=== PATIENT | female | born 1930 | race Caucasian/White ===

== ENCOUNTER 2017-03-30 06:28 | Inpatient (IN) ==
--- NOTE | 2017-03-27 14:18 | Anesthesia Evaluation PreOp ---
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: Denies Any Significant HX Other Medical History: Thyroid (hypothyroid), Other (breast cancer) Anesthesia History: No Prior Anesthetic Complications, Past Anesthesia (breast ca, AICD, vish) : No Alcohol Use: rarely Drug use: none Medications and Allergies Levothyroxine [Synthroid] 50 mcg PO AD 04/26/15 [History] Levothyroxine [Synthroid] 75 mcg PO AD 04/26/15 [History] Lovastatin [Mevacor] 10 mg PO HS 04/26/15 [History] Anastrozole [Arimidex] 1 mg PO DAILY #90 tablet 10/15/15 [Rx] Cholecalciferol (D-3) [Vitamin D] 1,000 unit PO DAILY 06/09/16 [History] Lactose-Reduced Food [Ensure Original] 1 bottle PO QWEEK 02/19/17 [History] predniSONE [PredniSONE] 10 mg PO BIDWM #6 tab 02/20/17 [Rx] 3 Allergy/AdvReac Type Severity Reaction Status Date / Time No Known Allergies Allergy Verified 02/19/17 08:16 - Meds/Allergy Pre-op Review Medications Reviewed: Yes Allergies Reviewed: Yes Beta Blockers on Current Med List: No Anesthesia Results - Labs Laboratory Tests 03/26/17 03/26/17 03/26/17 15:42 15:42 15:42 Hgb 14.3 Hct 45.1 H Plt Count 165 PT 11.6 INR 1.1 APTT 32.4 Sodium 144 Potassium 4.1 BUN 20 Creatinine 0.97 - Imaging Additional studies: echo: Normal LV systolic function, LVEF 60%. Normal right ventricular size and function. A device lead was visualized in the right atrium and right ventricle. There is a moderate-large pericardial effusion present, located adjacent to the right ventricle. There is no echocardiographic evidence of tamponade, however, the IVC was not visualized on this study. This pericardial effusion has not significantly changed in size when compared to the prior echocardiogram on 11/28/16. Anesthesia Exam Selected Entries 03/30/17 06:58 Temperature 98.0 F Pulse Rate 89 Respiratory Rate 16 Blood Pressure 146/77 O2 Sat by Pulse Oximetry 91 Weight: 42 NPO (# of Hours): 8 Pain Scale: 0 Pain Scale Used: Numeric (1 - 10) - HEENT Pupil (Motor): EOMI Mallampati: II Teeth: Edentulous Oral Opening: Greater than 3 - CUT PRESS OPERATOR LOC: Oriented CUT PRESS OPERATOR Motor: Normal RUE, Normal LUE, Normal RLE, Normal LLE, Normal Face CUT PRESS OPERATOR Sensory: Normal: RUE, LUE, RLE, LLE, Face - Cardiac Rhythm: Regular Murmur: None - Pulmonary Breath Sounds: bilateral Clear Respiratory Effort: Symmetrical Anesthesia Assess/Plan ASA Score: 3 Modified La Scale for Level of Consciousness: Cooperative, oriented, and tranquil Anesthetic Plan: General Monitoring Plan: Standard Monitors Recovery Plan: PACU (discussed risks of GA, questions answered and agrees to proceed)
[2017-03-30] MEDS ORDERED: *HR* Etomidate 20 MG/10 ML AMPUL IVP ONE (06:50)
[2017-03-30] MEDS ORDERED: *HR* Phenylephrine 10 MG/ML VIAL ONE (06:50)
[2017-03-30] MEDS ORDERED: *HR* Rocuronium Bromide 50 MG/5 ML VIAL ONE (06:50)
[2017-03-30] MEDS ORDERED: *HR* Midazolam HCl 5 MG/5 ML VIAL IVP ONE (06:52)
[2017-03-30] MEDS ORDERED: *HR* FentaNYL (PF) 250 MCG/5 ML VIAL ONE (06:53)
[2017-03-30] MEDS ORDERED: Albuterol 2.5 MG/3 ML NEBULIZER IH ONE (06:57)
[2017-03-30] MEDS ORDERED: ceFAZolin 1,000 MG in D5% in Water (Mini-Bag+) 100 ML IVPB ONE (07:28)
[2017-03-30] MEDS ORDERED: Ringers Solution, Lactated 1,000 ML IVC SCH (07:30)
--- NOTE | 2017-03-30 07:32 | History & Physical Report ---
Date of Encounter: 03/30/17 Time of Encounter: 07:31 24 Hour HP Update - Instructions Instructions: If the History and Physical is less than 30 days old and was completed prior to A.M. admission and or procedure and has NOT been updated on calendar day of procedure please complete this update prior to performing procedure. - Update Patient reports changes in Medical Condition: No Changes in examination, assessment, or condition: No Changes in Medication: No Preop tests/diagnostics Reviewed: Yes Pre-Op MRSA Screen: Negative Surgery Remains Indicated: Yes Consent for Planned Operative Procedure(s) Verified: Yes - Pre-Operative Checklist Preoperative Checklist Indicated: Yes Prophylactic Antibiotic Ordered: Yes Home Medications Include Beta June: No Beta June Taken Today (Day of Surgery): No Beta June Taken Yesterday (Day Prior to Surgery): No Is VTE Prophylaxis Indicated?: Yes
[2017-03-30] MEDS ORDERED: Dexamethasone 4 MG/ML VIAL ONE (08:30)
[2017-03-30] MEDS ORDERED: Ondansetron 4 MG/2 ML VIAL ONE (08:30)
[2017-03-30] MEDS ORDERED: Naloxone 0.4 MG/ML INJ IVP PRN (08:51)
[2017-03-30] MEDS ORDERED: *HR* OxyCODONE/APAP 5/325 TABLET PO PRN ×2 (08:51→08:52)
[2017-03-30] MEDS ORDERED: Ondansetron 4 MG/2 ML VIAL IVP ONE (08:52)
[2017-03-30] MEDS ORDERED: *HR* Meperidine 25 MG/ML SYRINGE IVP PRN (08:52)
[2017-03-30] MEDS ORDERED: Dextrose Gel 15 GM PO PRN ×2 (08:55)
[2017-03-30] MEDS ORDERED: D5% in Water 1,000 ML IVC PRN (08:55)
[2017-03-30] MEDS ORDERED: *HR* Dextrose 50 % in Water (Syg) 50 ML SYRINGE IVP PRN (08:55)
--- NOTE | 2017-03-30 09:01 | Operative Note ---
Date of procedure: 03/30/17 Procedure in Detail: Preoperative diagnosis. Pericardial effusion. Postoperative diagnosis. Same. Procedures. Pericardial window with pericardial biopsy. Surgeon. Dr. Pelon De Jesus. Anesthesia. Dr. Tirso Peacock. The patient is an 86-year-old female who has a history of breast cancer approximately 5 years ago. She has been followed for a pericardial effusion. She has had symptoms of dyspnea on exertion. She was referred to surgery both to remove the fluid and to make a diagnosis. She was brought to the operating room where she was prepped and draped in standard fashion. She underwent a general anesthetic. A standard incision was made over the lower sternum and xiphoid into the midline epigastrium. A retractor was placed underneath the sternum and dissection continued up to the pericardium. The pericardium was opened with a #15 blade and the Metzenbaum scissors. A proximally 100 mL of clear fluid was obtained. This was sent for cultures including aerobic, anaerobic, TB and fungal. It was also sent for cytology. 2 pericardial biopsies were taken using the Metzenbaum scissors and sent together for permanent pathology. The pericardium was free. There were no adhesions. It was smooth. There was no palpable tumor. A single # 32 angle chest tube was placed in the pericardial well. The fascia was closed with a #0 Vicryl. Subcutaneous tissues with a 2-0 Vicryl. Skin was closed with a 3-0 Vicryl subcuticular stitch. The patient tolerated the procedure well and was returned to recovery room in satisfactory and stable condition.
[2017-03-30] MEDS ORDERED: *HR* Morphine 2 MG/ML SYRINGE ONE ×4 (09:07→09:46)
[2017-03-30] MEDS: *HR* Morphine 2 MG/ML SYRINGE IVP PRN ×7 (09:25→10:33)
[2017-03-30 09:28] LABS: Basophils % 0.4 %; Eosinophils # 0.1 K/mcL (0.0-0.6); Eosinophils % 1.6 %; Hematocrit 41.1 % (35.3-44.9); Immature Granulocytes % 0.5 % (0-4); Lymphocytes # 1.6 K/mcL (0.6-4.6); Lymphocytes % 27.9 %; Mean Corpuscular HGB Conc 31.6 g/dL (31.6-35.5); Mean Corpuscular Volume 91.7 fL (83.0-100.0); Mean Platelet Volume 12.4 fL (9.4-12.4); Monocytes # 0.4 K/mcL (0.0-1.3); Monocytes % 7.8 %; Neutrophils # 3.5 K/mcL (1.6-8.9); Platelet Count 134 K/mcL (140-400); Red Blood Count 4.48 M/mcL (3.82-4.97); Red Cell Distribution Width 13.9 % (11.5-14.5); Segmented Neutrophils % 61.8 %
[2017-03-30 09:35] LABS: ABG Base Excess 1.9 mEq/L (-2.0 to 3.0); ABG HCO3 28 mEq/L (21-27); ABG Oxygen Saturation 95 % (95-98); ABG PCO2 50 mmHg (35-45); ABG PH 7.36 pH Units (7.32-7.45); ABG PO2 78 mmHg (85-104); ABG TCO2 29.7 mEq/L (20-26)
[2017-03-30 09:36] LABS: Blood Gas FiO2 30 %
[2017-03-30] MEDS ORDERED: *HR* Morphine 2 MG/ML SYRINGE IVP PRN ×2 (09:49→11:01)
--- NOTE | 2017-03-30 09:57 | Anesthesia Evaluation Post Op ---
Date of Encounter: 03/30/17 Time of Encounter: 10:00 - Vital Signs Vital Signs: Vital Signs/O2 Sat/Glucose, Most Current Temp Pulse Resp BP Pulse Ox 03/30/17 09:04 79 16 173/84 96 03/30/17 08:54 96 16 180/84 95 03/30/17 08:44 97.9 F 96 16 174/93 98 03/30/17 06:58 98.0 F 89 16 146/77 91 - Lungs Lungs: Clear Ascult./Percussion - Airway Airway: Non-obstructed - Cardiovascular Regular Rate - Mental Status Mental Status: Alert & Oriented, Answers Appropriately - Pain Pain Scale: 1 - Nausea Vomiting Nausea Vomiting: Not Present - Hydration Hydration: Ice chips - Discharge PostOp Status: Transfer Patient to floor
[2017-03-30] MEDS: 0.9 % Sodium Chloride 1,000 ML IVC SCH ×2 (10:42→23:54)
--- NOTE | 2017-03-30 10:54 | Cardiology Consult Note ---
Date of Encounter: 03/30/17 Time of Encounter: 10:50 Assessment and Plan (1) Chest tightness or pressure Current Visit: Yes Status: Acute -post-op chest heaviness and tightness after surgery this morning for a pericardial window (with biopsy) for a moderate to large sized pericardial effusion as seen on echocardiograms done 11/28/16 and 02/26/17. Both echos showed LVEF 60%, pericardial effusion as mentioned, and no evidence of cardiac tamponade. -pt's atypical chest pain is most likely musculoskeletal in nature and the result of the manipulation required for her procedure this morning. Discussion w patient/family: The assessment and plan as outlined above was discussed with the patient and/or family members who expressed understanding and agreement. All questions were answered. Thank you for involving us in the care of your patient. Please call with any questions. History of Present Illness Consult date: 03/30/17 Consult reason: post-op chest pain Chief complaint: chest tightness, heaviness History of present illness: Ms. Vaca is a 86 year old female with PMH of breast cancer s/p right mastectomy 5 years ago; symptomatic bradycardia, paroxysmal atrial fibrillation , and heart block s/p pacemaker insertion at [facility] in 2003 who c/o chest tightness and heaviness this morning s/p surgery for pericardial window to treat a moderate to large pericardial effusion first seen on TTE done 11/28/16 with a LVEF of 60% and no tamponade. Repeat echo done on 02/26/17 shows no significant changes from previous echo, moderate to large pericardial effusion, LVEF 60%, and no tamponade. Pt states the heaviness and tightness in her chest began after waking up from anesthesia, it is located along the right sternal boarder and it does not radiate. She has not felt this sensation in the past. Pt denies shortness of breath, N/V, diaphoresis, palpitations. However, pt does admit to chest discomfort on inhalation which improves on exhalation. Past Med Surg Social Fam HX - Past Medical History Medical history: cancer, hyperlipidemia, thyroid disease Psychiatric history: no psych history - Past Surgical History Surgical History: appendectomy, breast surgery, cholecystectomy, pacemaker/AICD - Social History Smoking Status: Never smoker Smokeless Tobacco Status: No Alcohol use: rarely Drug use: none Medications and Allergies Levothyroxine [Synthroid] 50 mcg PO Q48H 04/26/15 [History] Levothyroxine [Synthroid] 75 mcg PO Q48H 04/26/15 [History] Anastrozole [Arimidex] 1 mg PO DAILY #90 tablet 10/15/15 [Rx] Cholecalciferol (D-3) [Vitamin D] 1,000 unit PO DAILY 06/09/16 [History] Lactose-Reduced Food [Ensure Original] 1 bottle PO QWEEK 02/19/17 [History] Acetaminophen [Tylenol] 500 mg PO Q6HR PRN 03/30/17 [History] Aspirin [Ecotrin] 325 mg PO DAILY 03/30/17 [History] Calcium Carbonate/Vitamin D3 [Calcium 600-Vit D3 400 Tablet] 1 each PO BID 03/30 [History] Lovastatin [Lovastatin] 10 mg PO HS 03/30/17 [History] 3 Allergy/AdvReac Type Severity Reaction Status Date / Time No Known Allergies Allergy Verified 03/30/17 07:28 All Systems Review: A 10-system review of systems was performed and is negative for pertinent findings except as documented above in the HPI. - Cardiovascular Cardiovascular: as per HPI, no diaphoresis, no radiating jaw, neck or arm pain, no palpitations - Respiratory Respiratory: no dyspnea - Gastrointestinal Gastrointestinal: no nausea (chest pressure, tightness) Physical Examination Vital Signs, Last 4 Hours Temp Pulse Resp BP Pulse Ox 03/30/17 10:24 97.5 F L 78 22 144/86 95 03/30/17 10:04 97.8 F 74 16 130/93 96 03/30/17 09:54 77 16 153/73 96 03/30/17 09:44 97.8 F 73 16 152/77 96 03/30/17 09:34 73 16 152/72 95 03/30/17 09:24 75 16 130/93 94 03/30/17 09:14 97.8 F 77 16 137/86 96 03/30/17 09:04 79 16 173/84 96 03/30/17 08:54 96 16 180/84 95 03/30/17 08:44 97.9 F 96 16 174/93 98 03/30/17 06:58 98.0 F 89 16 146/77 91 General: Conversant, No Apparent Distress HEENT: Atraumatic, Normocephaly Cardiac: Reg Rate and Rhythm, Normal S1 and S2 Lungs: Normal Breath Sounds, No Wheeze, Rales, Rhonchi Neuro: Alert and responsive Skin: No rashes noted on visualized skin Musculoskeletal: Other (surgical placement of chest tube into pericardial well) Extremities: No Edema, Normal Pulses (dorsalis pedis pulses palpable bilaterally ), Other Results 03/30/17 09:15 03/30/17 10:52 Lab Results 03/30/17 09:15 WBC 5.6 Hgb 13.0 Hct 41.1 Plt Count 134 L Consult Discharge Plan - Plan Referrals: Helder Carpenter MD [Primary Care Provider] - (SENT WEB REQUEST ON 03-30-17 @ [phone]) Pelon De Jesus MD [Partnered Physician] - 04/30/17 1:00 pm
[2017-03-30 11:12] LABS: BUN/Creatinine Ratio 19 (6-26); Blood Urea Nitrogen 15 mg/dL (7-20); Calcium 8.6 mg/dL (8.6-10.8); Carbon Dioxide 25 mEq/L (19-29); Chloride 106 mEq/L (98-109); Glucose 106 mg/dL (70-99); Osmolality,Calculated 295 (280-300); Potassium 3.5 mEq/L (3.5-4.5); Sodium 142 mEq/L (136-145); eGFR For African Americans > 60 (> 60); eGFR For Non-African Americans > 60 (> 60)
[2017-03-30] MEDS: Ketorolac 15 MG/ML VIAL IVP SCH ×3 (11:29→23:55)
[2017-03-30] MEDS: Insulin LISPRO 300 UNITS/3 ML VIAL SQ SCH ×2 (11:30→16:44)
[2017-03-30] MEDS: Albuterol 2.5 MG/3 ML NEBULIZER IH SCH ×4 (11:34→23:49)
[2017-03-30] MEDS ORDERED: Ondansetron 4 MG/2 ML VIAL IVP PRN (13:34)
[2017-03-30] MEDS: ceFAZolin 2,000 MG in D5% in Water 100 ML IVPB SCH ×2 (16:44→23:55)
--- NOTE | 2017-03-30 18:09 | Electrocardiograph Report ---
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
[2017-03-30] MEDS: Ringers Solution, Lactated 1,000 ML IVC SCH (19:43)
[2017-03-30] MEDS ORDERED: Insulin LISPRO 300 UNITS/3 ML VIAL SQ SCH (21:00)
[2017-03-31] MEDS: Albuterol 2.5 MG/3 ML NEBULIZER IH SCH ×5 (04:55→20:31)
[2017-03-31 05:02] LABS: ABG Base Excess 3.3 mEq/L (-2.0 to 3.0); ABG HCO3 29 mEq/L (21-27); ABG Oxygen Saturation 95 % (95-98); ABG PCO2 45 mmHg (35-45); ABG PH 7.41 pH Units (7.32-7.45); ABG PO2 75 mmHg (85-104); ABG TCO2 29.9 mEq/L (20-26)
[2017-03-31 05:11] LABS: Basophils % 0.1 %; Hematocrit 36.7 % (35.3-44.9); Immature Granulocytes % 0.7 % (0-4); Lymphocytes # 1.1 K/mcL (0.6-4.6); Lymphocytes % 11.9 %; Mean Corpuscular HGB Conc 30.5 g/dL (31.6-35.5); Mean Corpuscular Hemoglobin 28.9 pg (28.0-33.3); Mean Corpuscular Volume 94.8 fL (83.0-100.0); Mean Platelet Volume 12.4 fL (9.4-12.4); Monocytes # 1.1 K/mcL (0.0-1.3); Monocytes % 12.2 %; Platelet Count 138 K/mcL (140-400); Red Blood Count 3.87 M/mcL (3.82-4.97); Red Cell Distribution Width 14.6 % (11.5-14.5); Segmented Neutrophils % 75.1 %
[2017-03-31 05:19] LABS: Hemoglobin 11.2 g/dL (11.5-15.4); Neutrophils # 6.8 K/mcL (1.6-8.9)
[2017-03-31 05:20] LABS: BUN/Creatinine Ratio 20 (6-26); Blood Urea Nitrogen 20 mg/dL (7-20); Carbon Dioxide 24 mEq/L (19-29); Chloride 105 mEq/L (98-109); Glucose 107 mg/dL (70-99); Osmolality,Calculated 293 (280-300); Potassium 3.9 mEq/L (3.5-4.5); Sodium 140 mEq/L (136-145); eGFR For African Americans > 60 (> 60); eGFR For Non-African Americans 53 (> 60)
[2017-03-31] MEDS: Ketorolac 15 MG/ML VIAL IVP SCH ×3 (06:47→17:51)
[2017-03-31] MEDS: Insulin LISPRO 300 UNITS/3 ML VIAL SQ SCH ×2 (07:56→11:37)
[2017-03-31] MEDS: 0.9 % Sodium Chloride 1,000 ML IVC SCH (11:35)
[2017-03-31] MEDS: Ringers Solution, Lactated 1,000 ML IVC SCH (11:38)
--- NOTE | 2017-03-31 14:18 | Cardiology Progress Note ---
Date of Encounter: 04/01/17 Time of Encounter: 09:30 Assessment and Plan (1) Chest tightness or pressure Current Visit: Yes Status: Resolved -post-op chest heaviness and tightness after surgery 03/30/17 for a pericardial window (with biopsy) for a moderate to large sized pericardial effusion as seen on echocardiograms done 11/28/16 and 02/26/17. Both echos showed LVEF 60%, pericardial effusion as mentioned, and no evidence of cardiac tamponade. -pt's atypical chest pain is most likely musculoskeletal in nature and the result of the manipulation required for her procedure this morning. -03/31/17 pt's chest rightness has resolved. Troponins 0.18 and 0.17. Limited echo shows: LVEF 60-65%, ventricular pacing, normal sized ventricles & normal systolic function, and no evidence of significant pericardial effusion. No further intervention at this time. Discussion w patient/family: The assessment and plan as outlined above was discussed with the patient and/or family members who expressed understanding and agreement. All questions were answered. Thank you for involving us in the care of your patient. Please call with any questions. Subjective Principal diagnosis: Chest tightness Interval history: -Pt seen and examined this morning, Ms. Vaca appears to be comfortably sitting in bedside chair. Pt states she ate breakfast this morning and has been using her incentive siprometer. Pt states she feels much better than yesterday and denies experiencing chest tightness or heaviness, which she had c/o after her procedure. Denies: N/V, abdominal pain, fever/chills, dyspnea, chest discomfort. Objective Vital Signs, Last 4 Hours Temp Pulse Resp BP Pulse Ox 03/31/17 11:36 20 92 03/31/17 11:32 89 92 03/31/17 11:05 98.4 F 89 20 127/61 94 General: Conversant, No Apparent Distress HEENT: Atraumatic, Normocephaly Cardiac: Reg Rate and Rhythm, Normal S1 and S2, No Murmur Lungs: Normal Breath Sounds, No Wheeze, Rales, Rhonchi Neuro: Alert and responsive Skin: No rashes noted on visualized skin Extremities: No Edema, Normal Pulses (dorsalis pedis pulses palpable bilaterally ) Results 03/31/17 04:09 03/31/17 04:09 Lab Results 03/31/17 03/31/17 03/31/17 04:09 04:09 04:09 WBC 9.1 D Hgb 11.2 L D Hct 36.7 Plt Count 138 L Sodium 140 Potassium 3.9 Chloride 105 Carbon Dioxide 24 BUN 20 Creatinine 1.00 Glucose 107 H Calcium 8.0 L Troponin I 0.17 H* - Imaging and Cardiology Echo: report reviewed - VTE Documentation of Mechanical Device: Intermittent pneumatic compression device Consult Discharge Plan - Plan Referrals: Helder Carpenter MD [Primary Care Provider] - 04/07/17 11:30 am () Pelon De Jesus MD [Partnered Physician] - 04/30/17 1:00 pm Chau Alexis DO [Partnered Physician] - 04/16/17 10:45 am
--- NOTE | 2017-03-31 15:43 | Cardiothoracic Progress Note ---
Date of Encounter: 03/31/17 Time of Encounter: 15:41 - Assessment and plan (1) Pericardial effusion Current Visit: Yes Status: Acute The patient is recovering well from her subxiphoid pericardial window. The cytology of the pericardial fluid is pending. The chest tube drainage has decreased significantly. The chest tube remained to suction for 1-2 more days prior to removal. The assessment and plan as outlined above was discussed with the patient and/or family members who expressed understanding and agreement. All questions were answered. - Subjective Procedure(s) Performed: POD#1 S/P Subxiphoid pericardial window Interval history: The patient is resting comfortably in her hospital bed. She had some neck and shoulder discomfort this morning; however, this has been alleviated with nonsteroidal anti-inflammatory medication and a heating pad. Vital Signs, Last 4 Hours Temp Pulse BP Pulse Ox 03/31/17 15:19 98.5 F 86 83/56 94 Oxgyen Flow Rate Oxygen Flow Rate (LPM) 1 Clinical Data, last 8 Hours Output, Chest Tube Drainage 28 Amount [Mediastinal #1] Output, Chest Tube Drainage 38 Amount [Mediastinal #1] Weight 03/29/17 03/30/17 03/31/17 23:59 23:59 23:59 Weight 47.2 kg 46.9 kg - Physical Examination General: Conversant, No Apparent Distress Neck: No JVD, Normal carotid pulses Cardiac: Reg Rate and Rhythm Incision: No signs of infection, Dry/intact dressing Chest tubes: Minimal drainage, Other (No air leak.) Pacing Wires: In place Lungs: Normal Breath Sounds, No Wheeze, Rales, Rhonchi Neuro: Alert and responsive, No focal deficits noted Vascular: Normal capillary refill Extremities: No Clubbing, No Cyanosis, No Edema - Labs 03/31/17 04:09 03/31/17 04:09 Lab Results, Last 24 hours 03/31/17 03/31/17 03/31/17 04:09 04:09 04:09 WBC 9.1 D Hgb 11.2 L D Hct 36.7 Plt Count 138 L Sodium 140 Potassium 3.9 Chloride 105 Carbon Dioxide 24 BUN 20 Creatinine 1.00 Glucose 107 H Calcium 8.0 L Troponin I 0.17 H* - Imaging Chest Xray: image reviewed (No pneumothorax. Small right pleural effusion.) - VTE Documentation of Mechanical Device: Intermittent pneumatic compression device Consult Discharge Plan - Plan Referrals: Helder Carpenter MD [Primary Care Provider] - 04/07/17 11:30 am () Pelon De Jesus MD [Partnered Physician] - 04/30/17 1:00 pm Chau Alexis DO [Partnered Physician] - 04/16/17 10:45 am
[2017-04-01] MEDS: Ketorolac 15 MG/ML VIAL IVP SCH ×5 (00:03→23:27)
[2017-04-01] MEDS: Albuterol 2.5 MG/3 ML NEBULIZER IH SCH ×6 (00:09→20:35)
--- NOTE | 2017-04-01 07:12 | Cardiothoracic Progress Note ---
Date of Encounter: 04/01/17 Time of Encounter: 07:10 - Assessment and plan (1) Pericardial effusion Current Visit: Yes Status: Acute The patient is recovering well from her subxiphoid pericardial window. The cytology of the pericardial fluid is pending. The chest tube drainage was minimal overnight. The chest tube will be removed in the morning. The assessment and plan as outlined above was discussed with the patient and/or family members who expressed understanding and agreement. All questions were answered. - Subjective Procedure(s) Performed: POD#2 S/P Subxiphoid pericardial window Interval history: The patient is resting comfortably in her hospital bed. She has no complaints. Vital Signs, Last 4 Hours Temp Pulse Resp BP Pulse Ox 04/01/17 04:49 98.1 F 86 16 128/71 99 04/01/17 04:45 18 93 Oxgyen Flow Rate Oxygen Flow Rate (LPM) 2 Clinical Data, last 8 Hours Output, Urine Amount 225 Weight 03/30/17 03/31/17 04/01/17 23:59 23:59 23:59 Weight 47.2 kg 46.9 kg 47 kg - Physical Examination General: Conversant, No Apparent Distress Neck: No JVD, Normal carotid pulses Cardiac: Reg Rate and Rhythm, Normal S1 and S2, No Murmur Incision: No signs of infection, Dry/intact dressing Chest tubes: Minimal drainage, Other (No air leak.) Lungs: Normal Breath Sounds, No Wheeze, Rales, Rhonchi Neuro: Alert and responsive, No focal deficits noted Vascular: Normal capillary refill Extremities: No Clubbing, No Cyanosis, No Edema - Labs 03/31/17 04:09 03/31/17 04:09 Lab Results, Last 24 hours 03/31/17 04:09 Troponin I 0.17 H* - VTE Documentation of Mechanical Device: Intermittent pneumatic compression device Consult Discharge Plan - Plan Referrals: Helder Carpenter MD [Primary Care Provider] - 04/07/17 11:30 am () Pelon De Jesus MD [Partnered Physician] - 04/30/17 1:00 pm Chau Alexis DO [Partnered Physician] - 04/16/17 10:45 am
[2017-04-02] MEDS: Albuterol 2.5 MG/3 ML NEBULIZER IH SCH ×4 (00:52→11:55)
[2017-04-02 07:10] VITALS: BP 172/90
[2017-04-02] MEDS: Ketorolac 15 MG/ML VIAL IVP SCH (07:57)
--- NOTE | 2017-04-02 08:13 | Discharge Summary ---
Date of Encounter: 04/02/17 Time of Encounter: 08:11 - Discharge Diagnosis (1) Pericardial effusion Priority: Primary Status: Acute - Discharge Medications Prescriptions: OxyCODONE/APAP 5/325 [Percocet 5/325 MG] 1 each PO Q4HR PRN #20 tab PRN Reason: Mild Pain Home Medications: Levothyroxine [Synthroid] 50 mcg PO Q48H 04/26/15 [History] Levothyroxine [Synthroid] 75 mcg PO Q48H 04/26/15 [History] Anastrozole [Arimidex] 1 mg PO DAILY #90 tablet 10/15/15 [Rx] Cholecalciferol (D-3) [Vitamin D] 1,000 unit PO DAILY 06/09/16 [History] Lactose-Reduced Food [Ensure Original] 1 bottle PO QWEEK 02/19/17 [History] Acetaminophen [Tylenol] 500 mg PO Q6HR PRN 03/30/17 [History] Aspirin [Ecotrin] 325 mg PO DAILY 03/30/17 [History] Calcium Carbonate/Vitamin D3 [Calcium 600-Vit D3 400 Tablet] 1 each PO BID 03/30 [History] Lovastatin 10 mg PO HS 03/30/17 [History] OxyCODONE/APAP 5/325 [Percocet 5/325 MG] 1 each PO Q4HR PRN #20 tab 04/02/17 [Rx ] Allergies/Adverse Reactions: 3 Allergy/AdvReac Type Severity Reaction Status Date / Time No Known Allergies Allergy Verified 03/30/17 07:28 Procedures/tests Complete & Pending: Procedures Performed prior 72 hours Category Date Time Status EKG [ECG 12 lead ECG] [ECG] Stat Y 03/30/17 10:41 Completed EV limited echocardiogram Routine Y 03/30/17 13:35 Completed Date of admission: 03/30/17 10:21 Primary care physician: Helder Carpenter MD Consults: 03/30/17 08:51 Consult to [employer] Boss [CONS] Routine Reason for SW Consult: pericardial window 03/30/17 10:40 Consult to Cardiology [CONS] Stat Comment: Consulting Provider: Cardiology Ana Luisa Reason for Consult: chest pain Call Completed: Yes 03/30/17 11:14 Consult to Nutrition [CONS] Routine Comment: Consulting Provider: NUTRITION Reason for Dietary Consult: PO Supplementation Procedure(s) Performed: 1. Subxiphoid pericardial window performed March 30, 2017. Discharging clinician: Calli Bell Anticipated date of discharge: 04/02/17 - Patient Status Disposition: Home, Self-Care Condition: Good Functional capacity at discharge: independent ambulation Overall status at discharge: patient is progressing back to baseline - Discharge Instructions Follow Up With: Helder Carpenter MD [Primary Care Provider] - 04/07/17 11:30 am () Pelon De Jesus MD [Partnered Physician] - 04/30/17 1:00 pm Chua Alexis DO [Partnered Physician] - 04/16/17 10:45 am - Diet and Activity Activity: resume usual activities as tolerated Diet: advance to your usual diet - Hospital Course Hospital course: Ms. Vaca is a 86 year old lady with a history of right breast cancer who was found to have pericardial effusion several months ago. This is been followed with serial echocardiograms and had not increased in size significantly. She did however experience some dyspnea on exertion and was recommended for drainage of the pericardial effusion for symptomatic relief and diagnostic purposes. The patient underwent a subxiphoid pericardial window on March. At the time of surgery the patient had approximately 200 mL of clear yellow fluid in the pericardial space. The cytology was pending at time of discharge; however, the permanent pathology on the pericardial tissue showed reactive changes. There was no evidence of malignancy. A chest tube drainage decreased and the chest tube was removed on POD #3. She will be discharged home later today. - Time Spent with Patient Total time spent providing and/or coordinating discharge services: Physical Examination Vital Signs, Last 4 Hours Temp Pulse Resp BP Pulse Ox 04/02/17 08:08 76 04/02/17 07:56 18 97 04/02/17 07:06 98.4 F 89 18 172/90 97 04/02/17 04:30 16 97 General: Conversant, No Apparent Distress HEENT: Atraumatic, Normocephaly, Trachea midline Neck: No JVD, Normal carotid pulses Cardiac: Reg Rate and Rhythm (Paced rhythm.), Normal S1 and S2, No Murmur Lungs: Normal Breath Sounds, No Wheeze, Rales, Rhonchi Neuro: Alert and responsive, No focal deficits noted Vascular: Normal capillary refill Musculoskeletal: No Chest Wall Tenderness Extremities: No Clubbing, No Cyanosis, No Edema - VTE Documentation of Mechanical Device: Graduated compression elastic hosiery
== END 2017-04-02 13:08 | disposition home or self-care (01) | DRG 272 ==
LOC: SAMDAY 06:28 → 2NNU 10:21
PROVIDERS: ADMIT Thoracic Surgery (Cardiothoracic Vascular Surgery); ATTEND Thoracic Surgery (Cardiothoracic Vascular Surgery)